=== PATIENT | male | born 1960 | race Caucasian/White ===

== ENCOUNTER 2023-08-15 06:26 | Day surgery (SDC) | payer BC, SELFPAY ==
[2023-08-07 08:11] VITALS: BMI 29.8
[2023-08-15] VITALS (8 sets, daily range): BP systolic 93–151; BP diastolic 52–95; BMI 29.8
[2023-08-15] MEDS: NORMOSOL-R 1000 IV (10:17)
[2023-08-15] MEDS: TYLENOL 1000 MG PO (10:29)
[2023-08-15] MEDS: CELEBREX 200 MG PO (10:29)
--- NOTE | 2023-08-15 10:48 | PTCARENOTE ---
No foam needed to sacrum.
[2023-08-15] MEDS: TYLENOL 650 MG PO (16:51)
--- NOTE | 2023-08-15 17:21 | OR.RPT ---
Operative Report
Operative Report
DATE OF OPERATION: 08/15/2023
SURGEON: Bj Nuñez MD
PREOPERATIVE DIAGNOSIS: Prolapsing internal hemorrhoids
POSTOPERATIVE DIAGNOSIS: Prolapsing internal hemorrhoids
OPERATION: Exam under anesthesia, 1-column closed hemorrhoidectomy, suture hemorrhoidopexy x 1, ligation of internal hemorrhoid x1, bilateral pudendal nerve block
ASSISTANTS:
1. None
ANESTHESIA: MAC w/ local and spinal
ESTIMATED BLOOD LOSS: 10 mL
FINDINGS:
1. Large prolapsing left lateral internal hemorrhoid with external component; performed Paez hemorrhoidectomy
2. Moderate-sized internal hemorrhoid in the left anterior position; performed suture hemorrhoidopexy
3. Small internal hemorrhoid in the right anterior position; performed suture ligation
SPECIMENS:
1. Left lateral hemorrhoid
DRAINS: N/A
COMPLICATIONS: None
INDICATIONS: The patient is a 62-year-old male who presented to my office for a prolapsing internal hemorrhoid. I identified 2 moderate to large-sized hemorrhoids. I recommended surgery as the hemorrhoid appeared too large for rubber band
ligation. I explained that a suture hemorrhoidopexy would be the plan for any concerning internal hemorrhoids. However, if a hemorrhoid is too large for a suture hemorrhoidopexy, I would perform a surgical hemorrhoidectomy. The operation was
discussed with the patient in detail, including the risks, benefits and alternatives. Risks described included, but not limited to bleeding, infection, urinary retention, damage to nearby structures such as the anal sphincter, fecal incontinence,
recurrence, and anesthetic risks. The patient understood and agreed to proceed. The consent was signed and placed in the chart.
PROCEDURE IN DETAIL: The patient was taken to the operating room and placed in a seated position on the stretcher. Sequential compression devices were placed bilaterally. Anesthesia performed a spinal block. The patient was then placed in prone
position on the operating table. Sedation was commenced without complication. Two seat belts were secured around the legs and upper back. The buttocks were taped apart. The perineum was shaved, prepped and draped in the usual fashion. A time-out
was then performed verifying the correct patient, procedure, operative site, positioning, and special equipment.
Local anesthesia used was a mixture of 60 mL of 0.25% Marcaine without epinephrine (with epinephrine was on backorder) and 0.6 mg of dexamethasone. 40 mL was injected perianally at the beginning of the case. The anorectal exam was performed
assessing all four quadrants of the anal canal using Hill-Paez retractors in progressively increasing size. There was a large left lateral mixed component hemorrhoid that easily prolapsed with withdrawal of the Hill�Paez retractor. This
was clearly the hemorrhoid causing his symptoms. Adjacent to this left lateral hemorrhoid, there was a left posterior hemorrhoid that was moderate in size. Upon withdrawal of the Hill�Paez retractor, this hemorrhoid only partially prolapsed.
There was an additional internal hemorrhoid in the right anterior position that was small and did not prolapse.
I elected to proceed with a excisional hemorrhoidectomy for the left lateral hemorrhoid. Any suture ligation technique would likely be inadequate for this large of a hemorrhoid. I began by grasping the hemorrhoid with 3 clamps and elevating it.
The anoderm was incised immediately around the distal aspect of the hemorrhoid. Hemostasis was achieved with electrocautery. Using Metzenbaum scissors, the hemorrhoid was dissected off of the sphincter complex, taking care to avoid injury to the
underlying sphincter. A large curved clamp was placed under the hemorrhoid, taking care to avoid clamping sphincter muscle. A 15 blade was used to excise the hemorrhoid. The hemorrhoid was passed off for specimen. A 2-0 Vicryl was then thrown
around the pedicle and tied down, leaving a long tail. The mucosa was reapproximated using this 2-0 Vicryl in a running fashion to the level of the dentate line. I then ran it back to the pedicle in a locking fashion. The 2-0 Vicryl was then
knotted to the initial tail to ligate the pedicle a third time. Next, another 2-0 Vicryl was used to close the defect of the anoderm in a running fashion. Hemostasis was checked. There was some oozing from the closure on the anal mucosa. This
was controlled with 2 [id number] 2-0 Vicryl stitches.
For the left posterior hemorrhoid, I elected to perform a suture ligation and hemorrhoidopexy. I ligated the pedicle of the hemorrhoid with a 2-0 Vicryl in a figure-of-8 fashion, leaving the tail long. I took running mucosal bites of the hemorrhoid
distally toward the dentate line, stopping 1 cm above the dentate line. I tied this down to the long tail in order to pexy the hemorrhoid. Hemostasis was confirmed. For the remaining internal hemorrhoid in the right anterior position, I performed a
simple suture ligation with a 2-0 Vicryl in a [id number] fashion. The anal canal was irrigated copiously with saline, checking for hemostasis, which was ensured. The remaining 20 mL of local were injected. 5 mL was injected bilaterally for a
pudendal nerve block. 10 mL was injected around the surgical site and perianally. The smallest Hill-Paez was used to check hemostasis once more, which was confirmed. Surgicel was placed in the anal canal prophylactically.
At this point, the procedure was complete. All needle, sponge and instrument counts were correct. The patient tolerated the procedure well and was transferred to the recovery room in stable condition with gauze dressing in place secured with silk
tape.
DICTATED BY: Bj Nuñez MD
== END 2023-08-15 16:40 | disposition home or self-care (01) ==
LOC: SDS 06:26
PROVIDERS: ATTENDING PHYSICIAN Surgery; FAMILY PHYSICIAN Internal Medicine
DX: K64.8 Other hemorrhoids (principal)
CPT/HCPCS: 46948; 88304; 36415; 93005

== ENCOUNTER → 2024-10-30 11:55 | Outpatient (REF) | payer BC, SELFPAY | LOC: RCS 11:55 | PROVIDERS: ATTENDING PHYSICIAN Orthopaedic Surgery Hand Surgery; FAMILY PHYSICIAN Internal Medicine | DX: Z01.818 Encounter for other preprocedural examination (principal) | CPT/HCPCS: 93005 ==